=== PATIENT | female | born 1985 | race Caucasian/White ===

== ENCOUNTER 2020-12-08 11:25 | Emergency (ER) | payer OTHER, MEDICAID ==
[~2020-12-08] VITALS: Ht 162.6 cm; Wt 68.0 kg
[2020-12-08 13:01] VITALS: BP 127/76
== END 2020-12-08 13:02 | disposition home or self-care (01) ==
LOC: M.ERS 11:25
DX: Z20.822 Contact with and (suspected) exposure to COVID-19 (principal)